=== PATIENT | male | born 1990 | race Caucasian/White ===

== ENCOUNTER 2023-10-05 10:16 | Outpatient (AMB) | payer OTHER, SELFPAY ==
--- NOTE | 2023-10-05 10:19 | AM.OFFWIN_ITS ---
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 Patient is in the . Is in today because of lower back discomfort x3 days. States that he was playing golf and feels like he pulled his back during one of his swings. For the past 3 days he has had discomfort sitting, standing, and while sleeping. Patient does have history of lower back pain over the past 2 years. Denies any trauma to the area. Denies hearing any popping or cracking. There is no obvious deformity on physical exam. Patient has no radiculopathy. No numbness or saddle numbness. Does have limited rotation to flexion extension. Has utilized ibuprofen with mild relief. Will obtain lumbar x-ray. Will give meloxicam, cyclobenzaprine and prednisone to be taken as prescribed. Patient will also be given referral for physical therapy. My initial read of the x-ray looks like there may be spondylosis with abnormal curvature of the lumbar area. Patient will likely benefit from further workup including MRI of the lumbar spine. Patient has been educated on this and should follow-up with his PCP. [facility] Social History Patient Tobacco Use Status: Never used Tobacco Review of Systems Const All systems reviewed & are unremarkable except as noted in HPI and below Physical Exam Vital Signs: Last Vital Signs Temp 97.9 F 10/05/23 10:27 Pulse 80 10/05/23 10:27 BP 128/74 10/05/23 10:27 Pulse Ox 98 10/05/23 10:27 BMI result Body Mass Index 22.4 Const Other: Appearance: Alert.? Oriented X3.? No acute distress.? Head: Normocephalic Neck: Normal inspection.? Neck supple.? Respiratory: No respiratory distress.? Extremities: No lower extremity edema. Back: +Lumber tenderness, +Paraspinal muscle tenderenss. no C-spine tenderness, limited range of motion to flexion/extension rotation., no CVA tenderness bilaterally Neuro: Oriented X 3.? No motor deficit.? No sensory deficit. CN 2-12 intact Assessment & Plan Assessment & Plan (1) Lumbar pain: Comment: Patient is in the . Is in today because of lower back discomfort x3 days. States that he was playing golf and feels like he pulled his back during one of his swings. For the past 3 days he has had discomfort sitting, standing, and while sleeping. Patient does have history of lower back pain over the past 2 years. Denies any trauma to the area. Denies hearing any popping or cracking. There is no obvious deformity on physical exam. Patient has no radiculopathy. No numbness or saddle numbness. Does have limited rotation to flexion extension. Has utilized ibuprofen with mild relief. Will obtain lumbar x-ray. Will give meloxicam, cyclobenzaprine and prednisone to be taken as prescribed. Patient will also be given referral for physical therapy. My initial read of the x-ray looks like there may be spondylosis with abnormal curvature of the lumbar area. Patient will likely benefit from further workup including MRI of the lumbar spine. Patient has been educated on this and should follow-up with his PCP. Code(s): M54.50 - Low back pain, unspecified Plan Follow-up with PCP. Orders: Orders XR lumbar spine 2-3V Today M54.50 - Low back pain, unspecified PT Evaluation and Treatment Today M54.50 - Low back pain, unspecified Medications: New cyclobenzaprine 10 mg PO BEDTIME PRN 14 tabs 0RF muscle spasm meloxicam Do not combine with other NSAIDS. 15 mg PO DAILY 20 tabs 0RF prednisone 50 mg PO DAILY 5 tabs 0RF Coding Level of Care Code Est Pt Level 3 (93827) Diagnoses Lumbar pain M54.50 Time Spent (min) 27
[2023-10-05 10:27] VITALS: BP 128/74; PULSE 80; TEMP 36.6; O2SAT 98; BMI 22.4
== END 2023-10-05 11:44 | disposition home or self-care (01) ==
PROVIDERS: Visit Provider Nurse Practitioner Primary Care
DX: M54.50 Low back pain, unspecified (principal)
CPT/HCPCS: 99213

== ENCOUNTER 2023-10-05 10:36 | Outpatient (REF) | payer OTHER, SELFPAY ==
--- NOTE | ~2023-10-05 | XR_ITS ---
EXAMINATION: XR LUMBOSACRAL SPINE CLINICAL INFORMATION: Low back pain COMPARISON: None available. TECHNIQUE: Three views of the lumbosacral spine. FINDINGS: Mild degenerative changes with disc space narrowing at L4-L5 and L5-S1. The vertebral bodies and posterior elements are otherwise normal. The remainder of the disc spaces are preserved and the vertebral alignment is normal. The paraspinal soft tissues are normal. XR/XR lumbar spine 2-3V IMPRESSION: Mild degenerative changes with disc space narrowing at L4-L5 and L5-S1.
== END 2023-10-05 10:37 | disposition home or self-care (01) ==
LOC: HO.HMGCX 10:36
PROVIDERS: Visit Provider Nurse Practitioner Primary Care
DX: M54.50 Low back pain, unspecified (principal)
CPT/HCPCS: 72100